=== PATIENT | male | born 1990 | race Caucasian/White ===

== ENCOUNTER 2016-09-19 14:46 | Emergency (ER) | payer SELFPAY ==
[2016-09-19 15:06] VITALS: BP 130/82
[2016-09-19] MEDS ORDERED: Azithromycin TAB* 250 MG PO ONE (15:31)
[2016-09-19] MEDS ORDERED: cefTRIAXone VIAL(*) 250 MG VIAL IM ONE (15:34)
[2016-09-19] MEDS ORDERED: Lidocaine 1% MPF* 2 ML VIAL ONE (15:37)
--- NOTE | 2016-09-19 16:45 | UC ---
Complaint Male HPI - HPI Summary HPI Summary: HAD UNPROTECTED SEX ONE WEEK AGO, FOR SEVERAL DAYS HAS HAD IRRITATION WHEN URINATING. NO FEVER. NO ABDOMINAL PAIN. NO DISCHARGE. - History of Current Complaint Chief Complaint: UCGU Stated Complaint: PERSONAL Time Seen by Provider: 09/19/16 15:02 Hx Obtained From: Patient Onset/Duration: Gradual Onset, Lasting Days, Still Present Timing: Intermittent Severity Initially: Mild Severity Currently: Mild Location: Penis Character: Burning Aggravating Factor(s): Voiding Associated Signs And Symptoms: Positive: Dysuria. Negative: Back Pain, Fever, Hematuria, Constipation, Blood in Stool, Rectal Pain, Appetite, Nausea, Vomiting (# Of Episodes =), Penile Swelling, Penile Discharge - Risk Factors Testicular Torsion: Negative - Allergies/Home Medications Allergies/Adverse Reactions: Allergies Allergy/AdvReac Type Severity Reaction Status Date / Time No Known Allergies Allergy Verified 09/19/16 15:06 Home Medications: Home Medications NK [No Home Medications Reported] 09/19/16 [History Confirmed 09/19/16] PMH/Surg Hx/FS Hx/Imm Hx Previously Healthy: Yes - Surgical History Surgical History: Yes Surgery Procedure, Year, and Place: JAW SURGERY REPAIR FROM ACCIDENT. Mole removal age 12 - Family History Known Family History: Positive: Unknown, Cardiac Disease, Hypertension, Diabetes - Social History Occupation: Employed Full-time Lives: With Family Alcohol Use: None Substance Use Type: None Smoking Status (MU): Never Smoked Tobacco Type: Cigarettes, Smokeless Tobacco Amount Used/How Often: 1-2 per day Length of Time of Smoking/Using Tobacco: 1/2 PPD for 11 weeks - quit smoking When Did the Patient Quit Smoking/Using Tobacco: 01/12/14 - Immunization History Most Recent Influenza Vaccination: Fall 2014 Most Recent Tetanus Shot: UNKNOWN Review of Systems Constitutional: Negative Skin: Negative Eyes: Negative ENT: Negative Respiratory: Negative Cardiovascular: Negative Gastrointestinal: Negative Genitourinary: Dysuria Motor: Negative Neurovascular: Negative Musculoskeletal: Negative Neurological: Negative Psychological: Negative All Other Systems Reviewed And Are Negative: Yes - Comments Additional Review of Systems Comments: NO PENILE RASHES OR LESIONS, NO SCROTAL RASHES OR LESIONS, NO SCROTAL OR TESTICULAR TENDERNESS, NO EVIDENCE OF INGUINAL HERNIA Physical Exam Triage Information Reviewed: Yes Appearance: Well-Appearing, No Pain Distress, Well-Nourished Vital Signs: Initial Vital Signs Temp 98.2 F 09/19/16 15:00 Pulse 63 09/19/16 15:00 Resp 16 09/19/16 15:00 BP 130/82 09/19/16 15:00 Pulse Ox 99 09/19/16 15:00 Vital Signs Reviewed: Yes Eye Exam: Normal ENT Exam: Normal Dental Exam: Normal Neck exam: Normal Neck: Positive: Supple, Nontender, No Lymphadenopathy Respiratory Exam: Normal Respiratory: Positive: Chest non-tender, Lungs clear, Normal breath sounds, No respiratory distress, No accessory muscle use Cardiovascular Exam: Normal Cardiovascular: Positive: RRR, No Murmur, Pulses Normal, Brisk Capillary Refill Abdominal Exam: Normal Abdomen Description: Positive: Nontender, No Organomegaly, Other: - NO PENILE RASHES OR LESIONS, NO SCROTAL RASHES OR LESIONS, NO SCROTAL OR TESTICULAR TENDERNESS, NO EVIDENCE OF INGUINAL HERNIA Bowel Sounds: Positive: Present Musculoskeletal Exam: Normal Neurological Exam: Normal Psychological Exam: Normal Skin Exam: Normal - Additional Comments NO PENILE RASHES OR LESIONS, NO SCROTAL RASHES OR LESIONS, NO SCROTAL OR TESTICULAR TENDERNESS, NO EVIDENCE OF INGUINAL HERNIA Complaint Male Course/Dx - Differential Dx/Diagnosis Differential Diagnosis/HQI/PQRI: Epididymitis, Prostatitis, Pyelonephritis, Ureteral Calculi, Urinary Tract Infection Provider Diagnoses: STD TESTING WITH PROPHYLAXIS Discharge - Discharge Plan Condition: Stable Disposition: HOME Patient Education Materials: Chlamydia (ED), Sexually Transmitted Diseases (ED) , Safe Sex (ED), Gonorrhea (ED) Referrals: Pradeep Nolasco MD [Primary Care Provider] -
== END 2016-09-19 16:38 | disposition home or self-care (01) ==
LOC: UCCORT 14:46
DX: Z11.3 Encounter for screening for infections with a predominantly sexual mode of transmission (principal)
CPT/HCPCS: 81003; 87491; 87591; 96372; 99212; A9270-GY; G0463; J0696

== ENCOUNTER 2016-12-08 14:06 | Emergency (ER) | payer SELFPAY ==
[2016-12-08 14:22] VITALS: BP 145/73
--- NOTE | 2016-12-08 14:40 | UC ---
Respiratory Complaint HPI - HPI Summary HPI Summary: 26 year old male presents with produxtive cough with blood tinged mucus - History of Current Complaint Chief Complaint: UCGeneralIllness Stated Complaint: COUGH WITH BLOOD Time Seen by Provider: 12/08/16 14:18 Hx Obtained From: Patient Onset/Duration: Sudden Onset Timing: Constant Severity Initially: Moderate Severity Currently: Moderate - Allergies/Home Medications Allergies/Adverse Reactions: Allergies Allergy/AdvReac Type Severity Reaction Status Date / Time No Known Allergies Allergy Verified 12/08/16 14:17 Home Medications: Home Medications Albuterol HFA INHALER* [Ventolin HFA Inhaler*] 1 - 2 puff INH Q6H PRN 12/08/16 [ History Confirmed 12/08/16] Sulfamethox/Trimethoprim DS* [Bactrim DS 800/160 TAB*] 1 tab PO ONCE 12/08/16 [ History Confirmed 12/08/16] guaiFENesin ER TAB [Mucinex*] 600 mg PO BID PRN 12/08/16 [History Confirmed ] PMH/Surg Hx/FS Hx/Imm Hx Previously Healthy: Yes - Surgical History Surgical History: Yes Surgery Procedure, Year, and Place: JAW SURGERY REPAIR FROM ACCIDENT. Mole removal age 12 - Family History Known Family History: Positive: Unknown, Cardiac Disease, Hypertension, Diabetes - Social History Alcohol Use: None Substance Use Type: None Smoking Status (MU): Light Every Day Tobacco Smoker Type: Cigarettes, Smokeless Tobacco Amount Used/How Often: 4 cigarettes daily Length of Time of Smoking/Using Tobacco: 1/2 PPD for 11 weeks - quit smoking When Did the Patient Quit Smoking/Using Tobacco: 01/12/14 - Immunization History Most Recent Influenza Vaccination: Fall 2014 Most Recent Tetanus Shot: UNKNOWN Review of Systems Constitutional: Negative Skin: Negative Eyes: Negative ENT: Negative Respiratory: Cough Cardiovascular: Negative Gastrointestinal: Negative Genitourinary: Negative Motor: Negative Neurovascular: Negative Musculoskeletal: Negative Neurological: Negative Psychological: Negative All Other Systems Reviewed And Are Negative: Yes Physical Exam Triage Information Reviewed: Yes Vital Signs: Initial Vital Signs Temp 37.0 C 12/08/16 14:17 Pulse 99 12/08/16 14:17 Resp 18 12/08/16 14:17 BP 145/73 12/08/16 14:17 Pulse Ox 100 12/08/16 14:17 Vital Signs Reviewed: Yes Eye Exam: Normal ENT Exam: Normal Dental Exam: Normal Neck exam: Normal Neck: Positive: 1 Respiratory Exam: Normal Respiratory: Positive: Rhonchi, Wheezing Cardiovascular Exam: Normal Abdominal Exam: Normal Musculoskeletal Exam: Normal Neurological Exam: Normal Psychological Exam: Normal Skin Exam: Normal UC Diagnostic Evaluation - Laboratory O2 Sat by Pulse Oximetry: 100 Respiratory Course/Dx - Differential Dx/Diagnosis Provider Diagnoses: cough. chest congestion Discharge - Discharge Plan Condition: Stable Disposition: HOME Prescriptions: Albuterol HFA INHALER* [Ventolin HFA Inhaler*] 1 puff INH Q6H PRN #1 mdi PRN Reason: Wheezing Azithromyxin FELICIA (NF) [Z-Felicia (Zithromax) 250 mg tabs #6] 2 tab PO .TODAY, THEN 1 DAILY #6 tab Methylprednisolone [Medrol Dosepak 4 MG*] 4 mg PO .SEE FELICIA INSTRUCTION #21 tab guaiFENesin/CODIEN 100MG-10MG* [Robitussin AC 100Mg-10Mg*] 5 ml PO Q6H PRN #120 ml MDD 20 ML PRN Reason: Cough Patient Education Materials: Analgesic/Antihistamine/Decongestant (By mouth), Acute Cough (ED), Wheezing (ED) Forms: *Work Release Referrals: Pradeep Nolasco MD [Medical Doctor] -
[2016-12-08] MEDS ORDERED: predniSONE TAB* 20 MG PO ONE (14:41)
[2016-12-08] MEDS ORDERED: Albuterol/Ipratropium NEB.SOL* Albuterol 2.5 MG/Ipratropium 0.5 MG 3 ML INH ONE (14:41)
--- NOTE | 2016-12-08 15:03 | RAD ---
INDICATION: Hemoptysis COMPARISON: March 31, 2015 TECHNIQUE: PA and lateral dual-energy views were obtained. FINDINGS: Bones/Soft Tissues: There are no acute bony findings. Cardiomediastinal: The cardiomediastinal silhouette is normal. Lungs: There are no infiltrates. Pleura: There are no pleural effusions. Other: None IMPRESSION: NO ACTIVE DISEASE.
== END 2016-12-08 15:14 | disposition home or self-care (01) ==
LOC: UCCORT 14:06
DX: R05 Cough (principal); R09.89 Other specified symptoms and signs involving the circulatory and respiratory systems; F17.210 Nicotine dependence, cigarettes, uncomplicated
CPT/HCPCS: 71020; 99212; A9270-GY; G0463; J7512

== ENCOUNTER 2019-01-01 11:45 | Emergency (ER) | payer SELFPAY ==
[2019-01-01 12:51] VITALS: BP 131/83
--- NOTE | 2019-01-01 13:01 | UC ---
Eye Complaint HPI - HPI Summary HPI Summary: Pt presents with c/o left eye pain, swelling, redness and clear drainage x1 week. 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 Pt states that he is photophobic and the pain begins "behind his eye" and eye is extremely painful to touch - History of Current Complaint Chief Complaint: UCEye Stated Complaint: EYE PAIN,PRESSURE Time Seen by Provider: 01/01/19 12:57 Hx Obtained From: Patient Onset/Duration: Gradual Onset, Worse Since - onset Timing: Constant Severity Initially: Mild Severity Currently: Severe Pain Intensity: 7 Aggravating Factor(s): Light, Contact Lens Associated Signs And Symptoms: Positive: Photophobia, Drainage (Clear), Vision Impairment Bilateral, Vision Impairment Left, Swelling - Risk Factors Penetrating Injury Risk Factor: Negative Globe Rupture Risk Factors: Negative Acute Glaucoma Risk Factors: Negative Optic Artery Occlusion Risk Factors: Negative - Allergies/Home Medications Allergies/Adverse Reactions: Allergies Allergy/AdvReac Type Severity Reaction Status Date / Time No Known Allergies Allergy Verified 01/01/19 12:44 Home Medications: Home Medications NK [No Home Medications Reported] 01/01/19 [History Confirmed 01/01/19] PMH/Surg Hx/FS Hx/Imm Hx Previously Healthy: Yes - Surgical History Surgical History: Yes Surgery Procedure, Year, and Place: JAW SURGERY REPAIR FROM ACCIDENT. Mole removal age 12 - Family History Known Family History: Positive: Unknown, Cardiac Disease, Hypertension, Diabetes - Social History Occupation: Employed Full-time Lives: With Family Alcohol Use: Occasionally Substance Use Type: None Smoking Status (MU): Former Smoker Type: Cigarettes, Smokeless Tobacco Amount Used/How Often: 4 cigarettes daily Length of Time of Smoking/Using Tobacco: On and Off Since Age 14 Have You Smoked in the Last Year: Yes When Did the Patient Quit Smoking/Using Tobacco: ~08/2018 - Immunization History Most Recent Influenza Vaccination: Fall 2014 Most Recent Tetanus Shot: UNKNOWN Vaccination Up to Date: No Review of Systems All Other Systems Reviewed And Are Negative: Yes Constitutional: Positive: Negative Skin: Positive: Negative Eyes: Positive: Blurred Vision - left, Diplopia - left, Drainage - left, clear, Eye Redness - left, Photophobia - left ENT: Positive: Negative Respiratory: Positive: Negative Cardiovascular: Positive: Negative Gastrointestinal: Positive: Negative Genitourinary: Positive: Negative Motor: Positive: Negative Neurovascular: Positive: Negative Musculoskeletal: Positive: Negative Neurological: Positive: Headache Psychological: Positive: Negative Is Patient Immunocompromised?: No Physical Exam Triage Information Reviewed: Yes Appearance: Pain Distress Vital Signs: Initial Vital Signs Temp 98.5 F 01/01/19 12:41 Pulse 76 01/01/19 12:41 Resp 16 01/01/19 12:41 BP 131/83 01/01/19 12:41 Pulse Ox 98 01/01/19 12:41 Vital Signs Reviewed: Yes Eyes: Positive: Other: - scleritis, unable to observe pupil due to photophobia, pt c/o diplopia with EOM, EOMI, pt c/o severe pain with palpation of eye with lids closed Eye Complaint Course/Dx - Course Course Of Treatment: Pt was recommended to go to [facility] due to lack of insurance and need for ophthalmic evaluation - Differential Dx/Diagnosis Differential Diagnosis/HQI/PQRI: Corneal Abrasion, Glaucoma Provider Diagnosis: Pain, eye, left Discharge ED - Sign-Out/Discharge Documenting (check all that apply): Patient Departure All imaging exams completed and their final reports reviewed: No Studies - Discharge Plan Condition: Stable Disposition: HOME-RECOMMEND TO ED Patient Education Materials: Blurred Vision (ED), Eye Pain (ED) Referrals: Arabella Carlton MD [Medical Doctor] - If Needed No Primary Care Phys,NOPCP [Primary Care Provider] - Additional Instructions: Please go directly to [facility] Emergency Department for further evaluation and treatment. - Billing Disposition and Condition Condition: STABLE Disposition: Home-Recommend to ED - Attestation Statements Provider Attestation: I was available for consult. This patient was seen by the OPHELIA. The patient was not presented to , seen by or examined by sd -Roscoe Ramirez MD
== END 2019-01-01 13:11 | disposition home health service (06) ==
LOC: UCCORT 11:45
DX: H57.12 Ocular pain, left eye (principal); R51 Headache; H53.2 Diplopia; Z87.891 Personal history of nicotine dependence
CPT/HCPCS: 99212; G0463